=== PATIENT | male | born 1995 | race African-American/Black ===

== ENCOUNTER 2016-08-18 10:50 | Emergency (ER) | payer OTHER ==
--- NOTE | 2016-08-18 12:11 | EDDOCDS ---
Physician Documentation [facility] Name: Shira Velazquez Age: 20 yrs Sex: Male : 1995 Arrival Date: 08/18/2016 Time: 10:50 Bed TR3 Private MD: Other - Complete Info On Cds Disposition: 08/18/16 12:02 Discharged to Home/Self Care. Impression: Unspecified sexually transmitted disease - Screen, pt is asymptomatic and does not want treated until results come back. - Condition is Stable. - Discharge Instructions: Sexually Transmitted Disease, [id number]. - Medication Reconciliation, Local Pharmacy Hours form. - Follow up: [facility] [place]; When: 1 - 2 days; Reason: Recheck today's complaints, Continuance of care. Follow up: Emergency Department; Reason: Worsening of conditions. - Problem is new. - Symptoms have improved. Historical: - Allergies: no known allergies; - Home Meds: 1. none - PMHx: none; - PSHx: none; - Social history: Smoking status: Patient uses tobacco products, light tobacco smoker. No barriers to communication noted, The patient speaks fluent Mongolian. - : The pt / caregiver states he / she is not on anticoagulants. Home medication list is obtained from the patient. - Exposure Risk Screening:: None identified. Vital Signs: 08/18 10:55 BP 139 / 58; Pulse 67; Resp 16; Temp 97.8(O); Pulse Ox 100% on R/A; Weight 69.4 kg / jrd 153 lbs; Height 5 ft. 7 in. (170.18 cm) (R); Pain 0/10; 10:55 Body Mass Index 23.96 (69.40 kg, 170.18 cm) jrd MDM: 11:55 GC & Chlamydia Amplification Ordered. EDMS Signatures: Dispatcher [employer] EDMS Shanon Downs, RN RN jjEva Arora PA-C PA-C ef1 Selene OlmedoRN RN rs3 MTDD
--- NOTE | 2016-08-18 12:11 | EDDOCDS ---
Nurse's Notes [facility] Name: Shira Velazquez Age: 20 yrs Sex: Male : 1995 Arrival Date: 08/18/2016 Time: 10:50 Bed TR3 Private MD: Other - Complete Info On Cds Diagnosis: Unspecified sexually transmitted disease-Screen, pt is asymptomatic and does not want treated until results come back Presentation: 08/18 11:13 Presenting complaint: Patient states: Wants to be screened for STDs. had sexual rs3 intercourse with the new partner. denies of any symptoms. Adult Sepsis Screening: The patient does not have new or worsening altered mentation. Patient's respiratory rate is less than 22. Systolic blood pressure is greater than 100. Patient has a qSOFA score of 0- Negative Sepsis Screen. Suicide/Homicide risk assessment- the patient denies having any suicidal and/or homicidal ideations and does not present with any other emotional, behavioral or mental health complaints. Status: The patient is an active duty auto service station attendant. Transition of care: patient was not received from another setting of care. 11:13 Acuity: YELITZA Level 4 rs3 11:13 Method Of Arrival: Walkin/Carried/Asstd rs3 Triage Assessment: 11:17 General: Appears in no apparent distress. Pain: Denies pain. Pt Declines HIV testing. rs3 Historical: - Allergies: no known allergies; - Home Meds: 1. none - PMHx: none; - PSHx: none; - Social history: Smoking status: Patient uses tobacco products, light tobacco smoker. No barriers to communication noted, The patient speaks fluent Belarusian. - : The pt / caregiver states he / she is not on anticoagulants. Home medication list is obtained from the patient. - Exposure Risk Screening:: None identified. Screenin:09 Screening information is obtained from the patient. Fall risk: No risks identified. jjr Assistance ADL's: requires no assistance with activities of daily living. Abuse/DV Screen: The patient / caregiver reports he/she is: not in a situation that causes fear, pain or injury. Nutritional screening: No deficits noted. Advance Directives: There is no active DNR order. home support is adequate. Assessment: 12:08 General: Appears in no apparent distress, well nourished, well groomed, Behavior is jjr appropriate for age. Pain: Denies pain. Respiratory: No deficits noted. Derm: No deficits noted. Vital Signs: 10:55 BP 139 / 58; Pulse 67; Resp 16; Temp 97.8(O); Pulse Ox 100% on R/A; Weight 69.4 kg; jrd Height 5 ft. 7 in. (170.18 cm) (R); Pain 0/10; 10:55 Body Mass Index 23.96 (69.40 kg, 170.18 cm) [facility] Vitals: 10:55 Log In Time: August 18, 2016 at 10:45. jrd ED Course: 10:53 Patient visited by Mir Torres PCA. jrd 10:53 Patient moved to Waiting jrd 10:54 Other - Complete Info On Cds is Private Physician. jrd 10:56 Patient visited by Mir Torres PCA. jrd 10:56 Patient moved to Pre RCE jrd 11:16 Triage Initiated rs3 11:46 Patient moved to Triage 1 jjr 11:53 Eva Mart PA-C is PHCP. ef1 11:53 Bindu Anand MD is Attending Physician. ef1 11:54 Patient visited by Eva Mart PA-C. ef1 12:02 Agustin Hicks [facility] is Referral Physician. ef1 12:07 Patient moved to TR3 jjr 12:08 GC & Chlamydia Amplification Sent. ms18 12:09 The patient / caregiver is instructed regarding the plan of care and ED course. jjr 12:09 No IV's were initiated during this patient's visit. No procedures done that require jjr assistance. Order Results: There are currently no results for this order. Outcome: 12:02 Discharge ordered by Provider. ef1 12:09 Discharge Assessment: patient administered narcotics - no. The following High Risk jjr Discharge criteria are identified: None. Discharged to home ambulatory. Condition: stable. Discharge instructions given to patient, Instructed on discharge instructions, follow up and referral plans. Demonstrated understanding of instructions. No special radiology studies were completed. Property sent home with patient. 12:10 Patient left the ED. jjr Signatures: Shanon Downs RN RN jjr Eva Mart PA-C PA-C ef1 Selene Olmedo RN RN rs3 Rossy Manuel,RN RN ms18 Mir Torres, EXCELSIOR MACHINE OPERATOR EXCELSIOR MACHINE OPERATOR jrd MTDD
--- NOTE | 2016-08-20 13:11 | EDDOCDS ---
Physician Documentation [facility] Name: Shira Velazquez Age: 20 yrs Sex: Male : 1995 Arrival Date: 08/18/2016 Time: 10:50 Bed TR3 Private MD: Other - Complete Info On Cds Disposition: 08/18/16 12:02 Discharged to Home/Self Care. Impression: Unspecified sexually transmitted disease - Screen, pt is asymptomatic and does not want treated until results come back. - Condition is Stable. - Discharge Instructions: Sexually Transmitted Disease, [id number]. - Medication Reconciliation, Local Pharmacy Hours form. - Follow up: [facility] [place]; When: 1 - 2 days; Reason: Recheck today's complaints, Continuance of care. Follow up: Emergency Department; Reason: Worsening of conditions. - Problem is new. - Symptoms have improved. Historical: - Allergies: no known allergies; - Home Meds: 1. none - PMHx: none; - PSHx: none; - Social history: Smoking status: Patient uses tobacco products, light tobacco smoker. No barriers to communication noted, The patient speaks fluent Polish. - : The pt / caregiver states he / she is not on anticoagulants. Home medication list is obtained from the patient. - Exposure Risk Screening:: None identified. Vital Signs: 08/18 10:55 BP 139 / 58; Pulse 67; Resp 16; Temp 97.8(O); Pulse Ox 100% on R/A; Weight 69.4 kg / jrd 153 lbs; Height 5 ft. 7 in. (170.18 cm) (R); Pain 0/10; 10:55 Body Mass Index 23.96 (69.40 kg, 170.18 cm) jrd MDM: 11:55 GC & Chlamydia Amplification Ordered. EDMS 12:12 [facility] Payment Agreement was scanned into [employer] and attached to record. jp5 12:12 Financial registration complete. jp5 18:40 T-Sheet-- Draft Copy was scanned into [employer] and attached to record. klr Signatures: Dispatcher [employer] EDMS Shanon Downs RN RN Eva Johnson PA-C PAKorina ef1 Selene OlmedoRN RN rs3 Jordan Kerr jp5 Charlotte Rothman The chart was reviewed and I authenticate all verbal orders and agree with the evaluation and treatment provided.Attachments: 12:12 [facility] Payment Agreement jp5 18:40 T-Sheet-- Draft Copy klr Chart Complete MTDD
--- NOTE | 2016-08-20 13:11 | EDDOCDS ---
Nurse's Notes [facility] Name: Shira Velazquez Age: 20 yrs Sex: Male : 1995 Arrival Date: 08/18/2016 Time: 10:50 Bed TR3 Private MD: Other - Complete Info On Cds Diagnosis: Unspecified sexually transmitted disease-Screen, pt is asymptomatic and does not want treated until results come back Presentation: 08/18 11:13 Presenting complaint: Patient states: Wants to be screened for STDs. had sexual rs3 intercourse with the new partner. denies of any symptoms. Adult Sepsis Screening: The patient does not have new or worsening altered mentation. Patient's respiratory rate is less than 22. Systolic blood pressure is greater than 100. Patient has a qSOFA score of 0- Negative Sepsis Screen. Suicide/Homicide risk assessment- the patient denies having any suicidal and/or homicidal ideations and does not present with any other emotional, behavioral or mental health complaints. Status: The patient is an active duty government services professional. Transition of care: patient was not received from another setting of care. 11:13 Acuity: YELITZA Level 4 rs3 11:13 Method Of Arrival: Walkin/Carried/Asstd rs3 Triage Assessment: 11:17 General: Appears in no apparent distress. Pain: Denies pain. Pt Declines HIV testing. rs3 Historical: - Allergies: no known allergies; - Home Meds: 1. none - PMHx: none; - PSHx: none; - Social history: Smoking status: Patient uses tobacco products, light tobacco smoker. No barriers to communication noted, The patient speaks fluent South Korean. - : The pt / caregiver states he / she is not on anticoagulants. Home medication list is obtained from the patient. - Exposure Risk Screening:: None identified. Screenin:09 Screening information is obtained from the patient. Fall risk: No risks identified. jjr Assistance ADL's: requires no assistance with activities of daily living. Abuse/DV Screen: The patient / caregiver reports he/she is: not in a situation that causes fear, pain or injury. Nutritional screening: No deficits noted. Advance Directives: There is no active DNR order. home support is adequate. Assessment: 12:08 General: Appears in no apparent distress, well nourished, well groomed, Behavior is jjr appropriate for age. Pain: Denies pain. Respiratory: No deficits noted. Derm: No deficits noted. Vital Signs: 10:55 BP 139 / 58; Pulse 67; Resp 16; Temp 97.8(O); Pulse Ox 100% on R/A; Weight 69.4 kg; jrd Height 5 ft. 7 in. (170.18 cm) (R); Pain 0/10; 10:55 Body Mass Index 23.96 (69.40 kg, 170.18 cm) jrd Vitals: 10:55 Log In Time: August 18, 2016 at 10:45. jrd ED Course: 10:53 Patient visited by Mir Torres PCA. jrd 10:53 Patient moved to Waiting jrd 10:54 Other - Complete Info On Cds is Private Physician. jrd 10:56 Patient visited by Mir Torres PCA. jrd 10:56 Patient moved to Pre RCE jrd 11:16 Triage Initiated rs3 11:46 Patient moved to Triage 1 jjr 11:53 Eva Mart PA-C is PHCP. ef1 11:53 Bindu Anand MD is Attending Physician. ef1 11:54 Patient visited by Eva Mart PA-C. ef1 12:02 [facility]. ef1 12:07 Patient moved to TR3 jjr 12:08 GC & Chlamydia Amplification Sent. ms18 12:09 The patient / caregiver is instructed regarding the plan of care and ED course. jjr 12:09 No IV's were initiated during this patient's visit. No procedures done that require jjr assistance. 12:12 [facility] [place] Payment Agreement was scanned into [employer] and attached to record. jp5 12:20 Patient name changed from Markise\S\N\S\Marcus\S\ to Markise\S\Niangelo\S\Marcus. EDMS 18:40 T-Sheet-- Draft Copy was scanned into [employer] and attached to record. klr Order Results: Lab Order: GC & Chlamydia Amplification; SPEC'M 08/18/16 12:04 Test: CHLAMYDIA DNA AMPLIFICATION; Value: NEGATIVE; Range: NEGATIVE; Status: F Test: GC DNA AMPLIFICATION; Value: NEGATIVE; Range: NEGATIVE; Status: F Outcome: 12:02 Discharge ordered by Provider. ef1 12:09 Discharge Assessment: patient administered narcotics - no. The following High Risk jjr Discharge criteria are identified: None. Discharged to home ambulatory. Condition: stable. Discharge instructions given to patient, Instructed on discharge instructions, follow up and referral plans. Demonstrated understanding of instructions. No special radiology studies were completed. Property sent home with patient. 12:10 Patient left the ED. jjr Signatures: Dispatcher [employer] Shanon Buck, RN RN jjr Eva Mart, PA-C PA-C ef1 Selene OlmedoRN RN rs3 Rossy ManuelRN RN ms18 Mir Torres, CLAUDINE ALUMINUM MOLDER Jordan Sarkar Kathie klr Chart Complete WONG
--- NOTE | 2016-08-20 13:12 | EDDOCDS ---
Physician Documentation [facility] Name: Shira Velazquez Age: 20 yrs Sex: Male : 1995 Arrival Date: 08/18/2016 Time: 10:50 Bed TR3 Private MD: Other - Complete Info On Cds Disposition: 08/18/16 12:02 Discharged to Home/Self Care. Impression: Unspecified sexually transmitted disease - Screen, pt is asymptomatic and does not want treated until results come back. - Condition is Stable. - Discharge Instructions: Sexually Transmitted Disease, [id number]. - Medication Reconciliation, Local Pharmacy Hours form. - Follow up: [facility] [place]; When: 1 - 2 days; Reason: Recheck today's complaints, Continuance of care. Follow up: Emergency Department; Reason: Worsening of conditions. - Problem is new. - Symptoms have improved. Historical: - Allergies: no known allergies; - Home Meds: 1. none - PMHx: none; - PSHx: none; - Social history: Smoking status: Patient uses tobacco products, light tobacco smoker. No barriers to communication noted, The patient speaks fluent South Korean. - : The pt / caregiver states he / she is not on anticoagulants. Home medication list is obtained from the patient. - Exposure Risk Screening:: None identified. Vital Signs: 08/18 10:55 BP 139 / 58; Pulse 67; Resp 16; Temp 97.8(O); Pulse Ox 100% on R/A; Weight 69.4 kg / jrd 153 lbs; Height 5 ft. 7 in. (170.18 cm) (R); Pain 0/10; 10:55 Body Mass Index 23.96 (69.40 kg, 170.18 cm) jrd MDM: 11:55 GC & Chlamydia Amplification Ordered. EDMS 12:12 [facility] [place] Agreement was scanned into [employer] and attached to record. jp5 12:12 Financial registration complete. jp5 18:40 T-Sheet-- Draft Copy was scanned into [employer] and attached to record. klr Signatures: Dispatcher [employer] EDMS Shanon Downs RN RN Eva Johnson PA-C PAKorina ef1 Selene OlmedoRN RN rs3 Jordan Kerr jp5 Charlotte Rothman The chart was reviewed and I authenticate all verbal orders and agree with the evaluation and treatment provided.Attachments: 12:12 [facility] Payment Agreement jp5 18:40 T-Sheet-- Draft Copy klr Chart Complete MTDD
== END 2016-08-18 12:10 | disposition home or self-care (01) ==
LOC: M ED 10:50
DX: Z11.3 Encounter for screening for infections with a predominantly sexual mode of transmission (principal); F17.200 Nicotine dependence, unspecified, uncomplicated

== ENCOUNTER 2017-12-01 17:59 | Emergency (ER) | payer OTHER ==
[2017-12-01] MEDS: IBUPROFEN 600 MG TAB PO (19:29)
== END 2017-12-01 20:26 | disposition home or self-care (01) ==
LOC: M ED 17:59
DX: S09.90XA Unspecified injury of head, initial encounter (principal); S20.229A Contusion of unspecified back wall of thorax, initial encounter; S83.91XA Sprain of unspecified site of right knee, initial encounter; W01.10XA Fall on same level from slipping, tripping and stumbling with subsequent striking against unspecified object, initial encounter; Y92.9 Unspecified place or not applicable; Y93.9 Activity, unspecified; Y99.1 Military activity; Z79.899 Other long term (current) drug therapy
CPT/HCPCS: 72110